=== PATIENT | male | born 1975 | race Caucasian/White ===

== ENCOUNTER 2022-08-04 09:30 | Day surgery (SDC) | payer OTHER ==
[~2022-08-04] VITALS: Ht 172.7 cm; Wt 86.2 kg
[2022-08-04] MEDS ORDERED: fentaNYL citrate 0.05 MG/ML VIAL ONE (09:59)
[2022-08-04] MEDS ORDERED: diphenhydrAMINE 50 MG/ML VIAL ONE (09:59)
[2022-08-04] MEDS ORDERED: MIDAZOLAM 5 MG/5 ML VIAL ONE (10:00)
[2022-08-04] MEDS ORDERED: LIDOCAINE 2% 100 MG/5 ML UJET TP ONE (10:00)
[2022-08-04] MEDS ORDERED: fentaNYL citrate 0.05 MG/ML VIAL IVP ONE (12:50)
[2022-08-04] MEDS ORDERED: diphenhydrAMINE 50 MG/ML VIAL IVP ONE (12:50)
[2022-08-04] MEDS ORDERED: MIDAZOLAM 5 MG/5 ML VIAL IV ONE (12:50)
== END 2022-08-04 11:30 | disposition home or self-care (01) ==
LOC: MDS 09:30 → MMU 09:30 → MDS 11:30
PROVIDERS: ATTEND Internal Medicine Gastroenterology
DX: K62.5 Hemorrhage of anus and rectum (principal); E78.5 Hyperlipidemia, unspecified; Z20.822 Contact with and (suspected) exposure to COVID-19
CPT/HCPCS: 45378; 82948; 87426; J1200; J2250; J3010